=== PATIENT | male | born 1950 | race Hispanic/Latino ===

== ENCOUNTER 2019-08-12 07:15 | Day surgery (SDC) | payer MEDICARE ==
[2019-08-12] VITALS (7 sets, daily range): BP systolic 69–111; BP diastolic 33–71
[~2019-08-12 07:15] MED LIST: SODIUM CHLORIDE 0.9% 1000ML 1,000 ML IV ONE
[2019-08-12] MEDS ORDERED: STAR1PAC2 PO (09:59)
[2019-08-12] MEDS ORDERED: CLOT10TR MM (09:59)
[2019-08-12] MEDS ORDERED: [UNRECOGNIZED DRUG - OTHER] PO (09:59)
[2019-08-12] MEDS ORDERED: FURO20TA4 PO (09:59)
[2019-08-12] MEDS ORDERED: POTA10TA11 PO (09:59)
[2019-08-12] MEDS ORDERED: [UNRECOGNIZED DRUG - OTHER] (09:59)
[2019-08-12] MEDS ORDERED: VITAMIN D (09:59)
[2019-08-12] MEDS ORDERED: HYDR-2534 PO (09:59)
[2019-08-12] MEDS ORDERED: FISH1CAP27 PO (09:59)
[2019-08-12] MEDS ORDERED: GEMF600T5 PO (09:59)
[2019-08-12] MEDS ORDERED: MULT-1130 PO (09:59)
[2019-08-12] MEDS ORDERED: LEVE10006 PO (09:59)
[2019-08-12] MEDS ORDERED: DOC Q LACE PO (09:59)
[2019-08-12] MEDS ORDERED: ASPI-555 PO (09:59)
[2019-08-12] MEDS ORDERED: VITA1CAP PO (09:59)
[2019-08-12] MEDS ORDERED: CALCIUM PO (09:59)
[2019-08-12] MEDS ORDERED: TOPI200T16 PO (09:59)
[2019-08-12] MEDS ORDERED: PRED10TA3 PO (09:59)
[2019-08-12] MEDS ORDERED: PROPOFOL 10 MG/ML 20ML VIAL IV ONE (10:11)
[2019-08-12] MEDS ORDERED: EPHEDRINE SULFATE 50 MG/ML AMPULE ONE (10:28)
== END 2019-08-12 11:30 | disposition home or self-care (01) ==
LOC: DAH 07:15 → ENDO 07:15
PROVIDERS: ATTEND Internal Medicine
DX: K62.89 Other specified diseases of anus and rectum (principal); K64.1 Second degree hemorrhoids; I10 Essential (primary) hypertension; E78.5 Hyperlipidemia, unspecified; Z88.0 Allergy status to penicillin; Z88.1 Allergy status to other antibiotic agents; Z88.8 Allergy status to other drugs, medicaments and biological substances; Z86.73 Personal history of transient ischemic attack (TIA), and cerebral infarction without residual deficits; Z98.890 Other specified postprocedural states; Z79.899 Other long term (current) drug therapy; Z79.82 Long term (current) use of aspirin
CPT/HCPCS: 45378; A4215 ×2; A4221; A4222; A4223; A4606; A4620; A4663; J2704; J3490; J7030